=== PATIENT | female | born 1995 | race Caucasian/White ===

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

== ENCOUNTER 2017-01-19 21:16 | Emergency (ER) | payer SELFPAY ==
[~2017-01-19] VITALS: Ht 170.2 cm; Wt 50.8 kg
[2017-01-19 21:38] VITALS: BP 112/81; PULSE 88; RESP 12; TEMP 98.2; O2SAT 100
[2017-01-19] MEDS ORDERED: AUGM875T3 PO (22:07)
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
[2017-01-19] MEDS ORDERED: TETANUS/DIPHTHERIA TOXOID ADULT 0.5 ML VIAL IM ONE (22:15)
== END 2017-01-19 22:44 | disposition home or self-care (01) ==
LOC: PHEFT 21:16
DX: S61.255A Open bite of left ring finger without damage to nail, initial encounter (principal); J45.909 Unspecified asthma, uncomplicated; F32.9 Major depressive disorder, single episode, unspecified; F17.200 Nicotine dependence, unspecified, uncomplicated; Y04.1XXA Assault by human bite, initial encounter; Z23 Encounter for immunization
CPT/HCPCS: 90471; 90714

== ENCOUNTER 2017-03-21 15:09 | Emergency (ER) | payer SELFPAY ==
[~2017-03-21 15:09] MED LIST: AUGM875T3 PO
[2017-03-21 15:15] VITALS: BP 129/92; PULSE 83; RESP 18; TEMP 98.2; O2SAT 100
--- NOTE | 2017-03-21 15:43 | PD ---
HPI Chief Complaint: GI Complaint Time Seen by Provider: 15:27 Travel History International Travel<30 days: No Contact w/Intl Traveler<30days: No Traveled to known affect area: No History of Present Illness HPI The patient is a 21-year-old female who presents to the emergency department for lower abdominal pain and rectal bleeding. The patient has a 5 day history of rectal bleeding which she describes as mostly dark red blood that is in her stool and in the toilet. The patient took a picture with her phone and showed me a picture of the right red blood in the toilet and within the stool. The patient also complains of some generalized fatigue, arthralgias , and suprapubic pressure. However, the patient denies any associated dysuria, though she does complain of frequency and urgency. The patient denies any nausea, vomiting, or upper abdominal pain. Patient denies any history of IBD or IBS. The patient denies any associated fever, chills, or sweats. PFSH Past Medical History Medical History: Denies Significant Hx Asthma: Yes (ALLERGIES/ ANIMAL DANDER) Depression: Yes Diminished Hearing: No Immunizations Current: Yes Influenza Vaccination: No ?: Not LMP: 02/2017 : 0 Past Surgical History Surgical History: No Previous Surgery Social History Alcohol Use: Yes (occas) Tobacco Use: Yes (1/2 PPD) Substance Use: Yes Allergies-Medications (Allergen,Severity, Reaction): Coded Allergies: Animal Dander (Verified Allergy, Severe, Itching, 03/21/17) Cultivated Oat Pollen (Verified Allergy, Severe, Rash, 03/21/17) Smoke (Verified Allergy, Severe, Irritation, 03/21/17) Reported Meds & Prescriptions Reported Meds & Active Scripts Active No Active Prescriptions or Reported Medications Review of Systems Except as stated in HPI: all other systems reviewed are Neg General / Constitutional: No: Fever, Chills Cardiovascular: No: Chest Pain or Discomfort Respiratory: No: Shortness of Breath Gastrointestinal: Positive: Abdominal Pain, Hematochezia, No: Nausea, Vomiting Genitourinary: Positive: Urgency, Frequency, No: Dysuria, Hematuria, Discharge , Vaginal Bleeding Musculoskeletal: Positive: Arthralgias, Weakness Skin: No Rash Physical Exam Narrative GENERAL: Awake, alert, pleasant 21-year-old female who appears her stated age and is in no acute respiratory distress. SKIN: Focused skin assessment warm/dry. HEAD: Atraumatic. Normocephalic. EYES: Pupils equal and round. No scleral icterus. No injection or drainage. ENT: No nasal bleeding or discharge. Mucous membranes pink and moist. NECK: Trachea midline. No JVD. CARDIOVASCULAR: Regular rate and rhythm. No murmur appreciated. RESPIRATORY: No accessory muscle use. Clear to auscultation. Breath sounds equal bilaterally. GASTROINTESTINAL: Abdomen soft, non-tender, nondistended. No rebound tenderness. Rectal: Exam was performed in the presence of a female nurse. External examination reveals a small skin tag, no visible external hemorrhoid or anal fissure. Digital exam was not performed. MUSCULOSKELETAL: No obvious deformities. No clubbing. No cyanosis. No edema. NEUROLOGICAL: Awake and alert. No obvious cranial nerve deficits. Motor grossly within normal limits. Normal speech. PSYCHIATRIC: Appropriate mood and affect; insight and judgment normal. Data Data Last Documented VS Vital Signs Date Time Temp Pulse Resp B/P Pulse Ox O2 Delivery O2 Flow Rate FiO2 03/21/17 15:51 73 18 139/74 100 Room Air 03/21/17 15:15 98.2 Orders Complete Blood Count With Diff (03/21/17 15:36) Comprehensive Metabolic Panel (03/21/17 15:36) Lipase (03/21/17 15:36) Ecg Monitoring (03/21/17 15:36) Iv Access Insert/Monitor (03/21/17 15:36) Oximetry (03/21/17 15:36) Sodium Chloride 0.9% Flush (Ns Flush) (03/21/17 15:45) Urinalysis - C+S If Indicated (03/21/17 15:38) Ed Urine Pregnancytest Poc (03/21/17 15:38) Labs Laboratory Tests Test 03/21/17 03/21/17 15:40 15:45 Urine Collection Type CLEAN CATCH Urine Color YELLOW Urine Turbidity CLEAR Urine pH 6.5 Urine Specific [place] 1.009 Urine Protein NEG mg/dL Urine Glucose (UA) NEG mg/dL Urine Ketones NEG mg/dL Urine Occult Blood NEG Urine Nitrite NEG Urine Bilirubin NEG Urine Leukocyte Esterase TRACE Urine WBC 0-2 /hpf Urine Squamous Epithelial > 8 /hpf Cells Urine Bacteria RARE /hpf Microscopic Urinalysis Comment CULT NOT INDICATED Urine Collection Time 15:40 White Blood Count 10.3 TH/MM3 Red Blood Count 4.90 MIL/MM3 Hemoglobin 14.5 GM/DL Hematocrit 42.5 % Mean Corpuscular Volume 86.8 FL Mean Corpuscular Hemoglobin 29.7 PG Mean Corpuscular Hemoglobin 34.2 % Concent Red Cell Distribution Width 11.6 % Platelet Count 303 TH/MM3 Mean Platelet Volume 7.9 FL Neutrophils (%) (Auto) 71.4 % Lymphocytes (%) (Auto) 21.0 % Monocytes (%) (Auto) 6.2 % Eosinophils (%) (Auto) 0.8 % Basophils (%) (Auto) 0.6 % Neutrophils # (Auto) 7.3 TH/MM3 Lymphocytes # (Auto) 2.2 TH/MM3 Monocytes # (Auto) 0.6 TH/MM3 Eosinophils # (Auto) 0.1 TH/MM3 Basophils # (Auto) 0.1 TH/MM3 CBC Comment DIFF FINAL Differential Comment Sodium Level 141 MEQ/L Potassium Level 3.5 MEQ/L Chloride Level 106 MEQ/L Carbon Dioxide Level 26.5 MEQ/L Anion Gap 9 MEQ/L Blood Urea Nitrogen 10 MG/DL Creatinine 0.78 MG/DL Estimat Glomerular Filtration 95 ML/MIN Rate Random Glucose 91 MG/DL Calcium Level 9.4 MG/DL Total Bilirubin 0.8 MG/DL Aspartate Amino Transf 20 U/L (AST/SGOT) Alanine Aminotransferase 20 U/L (ALT/SGPT) Alkaline Phosphatase 80 U/L Total Protein 8.2 GM/DL Albumin 4.7 GM/DL Lipase 78 U/L MDM Medical Decision Making Medical Screen Exam Complete: Yes Emergency Medical Condition: Yes Medical Record Reviewed: Yes Interpretation(s) Laboratory Tests Test 03/21/17 03/21/17 15:40 15:45 Urine Collection Type CLEAN CATCH Urine Color YELLOW Urine Turbidity CLEAR Urine pH 6.5 Urine Specific [place] 1.009 Urine Protein NEG mg/dL Urine Glucose (UA) NEG mg/dL Urine Ketones NEG mg/dL Urine Occult Blood NEG Urine Nitrite NEG Urine Bilirubin NEG Urine Leukocyte Esterase TRACE Urine WBC 0-2 /hpf Urine Squamous Epithelial > 8 /hpf Cells Urine Bacteria RARE /hpf Microscopic Urinalysis Comment CULT NOT INDICATED Urine Collection Time 15:40 White Blood Count 10.3 TH/MM3 Red Blood Count 4.90 MIL/MM3 Hemoglobin 14.5 GM/DL Hematocrit 42.5 % Mean Corpuscular Volume 86.8 FL Mean Corpuscular Hemoglobin 29.7 PG Mean Corpuscular Hemoglobin 34.2 % Concent Red Cell Distribution Width 11.6 % Platelet Count 303 TH/MM3 Mean Platelet Volume 7.9 FL Neutrophils (%) (Auto) 71.4 % Lymphocytes (%) (Auto) 21.0 % Monocytes (%) (Auto) 6.2 % Eosinophils (%) (Auto) 0.8 % Basophils (%) (Auto) 0.6 % Neutrophils # (Auto) 7.3 TH/MM3 Lymphocytes # (Auto) 2.2 TH/MM3 Monocytes # (Auto) 0.6 TH/MM3 Eosinophils # (Auto) 0.1 TH/MM3 Basophils # (Auto) 0.1 TH/MM3 CBC Comment DIFF FINAL Differential Comment Sodium Level 141 MEQ/L Potassium Level 3.5 MEQ/L Chloride Level 106 MEQ/L Carbon Dioxide Level 26.5 MEQ/L Anion Gap 9 MEQ/L Blood Urea Nitrogen 10 MG/DL Creatinine 0.78 MG/DL Estimat Glomerular Filtration 95 ML/MIN Rate Random Glucose 91 MG/DL Calcium Level 9.4 MG/DL Total Bilirubin 0.8 MG/DL Aspartate Amino Transf 20 U/L (AST/SGOT) Alanine Aminotransferase 20 U/L (ALT/SGPT) Alkaline Phosphatase 80 U/L Total Protein 8.2 GM/DL Albumin 4.7 GM/DL Lipase 78 U/L Differential Diagnosis Differential diagnosis includes IBD, IBS, anal fissure, internal hemorrhoids, diverticulosis, Meckel's diverticulum, angiodysplasia, symptomatic anemia. Narrative Course IV was established, labs are drawn and sent, and the patient was placed on cardiac telemetry monitoring and continuous pulse oximetry monitoring. CBC was sent to lab. I had a discussion with the patient regarding the possibility of inflammatory bowel disease such as Crohn's and/or ulcerative colitis. I did advise the patient if her symptoms persist she may need to follow-up with gastroenterology for colonoscopy and further evaluation. Bedside UA test was negative. Hemoglobin is 14.5, within normal limits. LFTs are unremarkable. The patient is stable. For outpatient follow-up, I did advise her if symptoms persist she will need to follow-up with gastroenterology for evaluation and possible colonoscopy. I did advise her her symptoms could be secondary to internal hemorrhoids versus diverticulosis versus inflammatory bowel disease. She is advised to follow-up with securities clerk symptoms persist. Diagnosis Primary Impression: Hematochezia Additional Impression: Rectal bleeding Patient Instructions: General Instructions Additional Instructions: Follow-up with gastroenterology. Please provide the patient a copy of her labs at discharge. Work excuse for today. Med/Other Pt SpecificInfo: No Change to Meds Scripts No Active Prescriptions or Reported Meds Disposition: 01 DISCHARGE HOME Condition: Stable Rick Whaley MD Mar 21, 2017 15:43
[2017-03-21] MEDS ORDERED: SODIUM CHLORIDE 0.9% FLUSH 10 ML FLUSH IVF PRN (15:45)
[2017-03-21 15:51] VITALS: BP 139/74; PULSE 73; RESP 18; O2SAT 100
[2017-03-21 15:58] LABS: AUTOMATED NEUTROPHIL # 7.3 TH/MM3 (1.8-7.7); BASOPHIL # 0.1 TH/MM3 (0-0.2); BASOPHIL % 0.6 % (0.0-2.0); EOSINOPHIL # 0.1 TH/MM3 (0-0.4); EOSINOPHIL % 0.8 % (0.0-4.0); HEMATOCRIT 42.5 % (35.0-46.0); HEMO FLAGS DIFF FINAL; LYMPHOCYTE # 2.2 TH/MM3 (1.0-4.8); MEAN CELL VOLUME 86.8 FL (80.0-100.0); MEAN CORPUSCULAR HEMOGLOBIN 29.7 PG (27.0-34.0); MEAN CORPUSCULAR HGB CONC 34.2 % (32.0-36.0); MONO % 6.2 % (0.0-8.0); NEUT % 71.4 % (16.0-70.0); PLATELET COUNT 303 TH/MM3 (150-450); RED CELL DISTRIBUTION WIDTH 11.6 % (11.6-17.2); WHITE BLOOD COUNT 10.3 TH/MM3 (4.0-11.0)
[2017-03-21 16:03] LABS: BLOOD, URINE NEG (NEG); GLUCOSE,URINE NEG (NEG); KETONE, URINE NEG (NEG); NITRITE,URINE NEG (NEG); PH, URINE 6.5 (5.0-8.5)
[2017-03-21 16:19] LABS: CHLORIDE 106 MEQ/L (98-107); POTASSIUM 3.5 MEQ/L (3.5-5.1); SODIUM (NA) 141 MEQ/L (136-145)
[2017-03-21 16:21] LABS: BACTERIA, URINE RARE /hpf; COMMENT (UR) CULT NOT INDICATED; CULTURE IF INDICATED CULT NOT INDICATED; METHOD OF COLLECTION CLEAN CATCH; SQUAMOUS EPITHELIAL CELL URINE > 8 /hpf (0-5); URINE COLOR YELLOW (YELLW/STRAW); WBC, URINE 0-2 /hpf (0-5)
[2017-03-21 16:24] LABS: ANION GAP 9 MEQ/L (5-15); BICARBONATE 26.5 MEQ/L (21.0-32.0); BLOOD UREA NITROGEN 10 MG/DL (7-18)
[2017-03-21 16:27] LABS: ALT (GPT) 20 U/L (9-42); AST (GOT) 20 U/L (16-38); GLOMERULAR FILTRATION RATE 95 ML/MIN (>89)
[2017-03-21 16:28] LABS: TOTAL BILIRUBIN ADULT 0.8 MG/DL (0.2-1.0)
[2017-03-21 16:30] LABS: ALKALINE PHOSPHATASE 80 U/L (45-117)
== END 2017-03-21 16:55 | disposition home or self-care (01) ==
LOC: PHED 15:09
DX: K92.1 Melena (principal); K62.5 Hemorrhage of anus and rectum; R53.83 Other fatigue; M25.50 Pain in unspecified joint; R35.0 Frequency of micturition; R39.15 Urgency of urination; F17.200 Nicotine dependence, unspecified, uncomplicated
CPT/HCPCS: 80053; 81001; 83690; 84703; 85025; 99284